=== PATIENT | female | born 2000 | race Caucasian/White ===

== ENCOUNTER → 2020-09-23 | Outpatient (CLI) | payer OTHER ==
--- NOTE | 2020-09-23 16:41 | CARD ---
MR#: [id number] Date of Study: 09/23/2020 Ordering Physician: MARISSA MUNOZ, Referring Physician: MARISSA MUNOZ, Tech: Melita Hartley, [facility] APPROVED REPORT EXAM: Two-dimensional and M-mode echocardiogram with Doppler and color Doppler. Other Information Quality : GoodHR: 81bpm INDICATION Syncope 2D DIMENSIONS RVDd2.2 (2.9-3.5cm)Left Atrium(2D)2.3 (1.6-4.0cm) IVSd0.9 (0.7-1.1cm)Aortic Root(2D)2.4 (2.0-3.7cm) LVDd4.5 (3.9-5.9cm)LVOT Diameter2.0 (1.8-2.4cm) PWd0.7 (0.7-1.1cm)LVDs3.0 (2.5-4.0cm) FS (%) 34.1 %SV59.6 ml Aortic Valve AoV Peak Brock.97.8cm/sAoV VTI16.2cm AO Peak GR.3.8mmHgLVOT Peak Brock.74.3cm/s LVOT VTI 14.28cmAO Mean GR.2mmHg RICHA (VMAX)1.77rv3IRY (VTI)2.71cm2 Mitral Valve MV E Nuhctxdo83.5cm/sMV DECEL HUND370ab MV A Cegsylve19.2cm/sMV KWO03gv E/A Ratio1.7MVA (PHT)2.47cm2 TDI E/Lateral E'3.8E/Medial E'5.2 Pulmonary Valve PV Peak Zgfgpyfb42.9cm/sPV Peak Grad.3mmHg Tricuspid Valve TR P. Irvydgzv626bd/sRAP [id number] TR Peak Gr.11zySkWTEF67ztOe Pulmonary Vein S1 Fjjnvphk53.7cm/sD2 Sftxjlnf03.0cm/s PVa [id number] LEFT VENTRICLE The left ventricle is normal size. There is normal left ventricular wall thickness. The left ventricu lar systolic function is normal and the ejection fraction is within normal range. The Ejection Fracti on is 50-55%. There is normal LV segmental wall motion. The left ventricular diastolic function and f illing is normal for age. RIGHT VENTRICLE The right ventricle is normal size. There is normal right ventricular wall thickness. The right ventr icular systolic function is normal. ATRIA The left atrium size is normal. The right atrium size is normal. The interatrial septum is intact wit h no evidence for an atrial septal defect or patent foramen ovale as noted on 2-D or Doppler imaging. AORTIC VALVE The aortic valve is normal in structure and function. Doppler and Color Flow revealed no significant aortic regurgitation. There is no significant aortic valvular stenosis. Calculated aortic valve area is 2.34 cm2 with maximum pressure gradient of 5 mmHg and mean pressure gradient of 3 mmHg. MITRAL VALVE The mitral valve is normal in structure and function. There is no evidence of mitral valve prolapse. There is no mitral valve stenosis. Doppler and Color-flow revealed trace mitral regurgitation. TRICUSPID VALVE The tricuspid valve is normal in structure and function. Doppler and Color Flow revealed trace tricus pid regurgitation with an estimated PAP of 27 mmHg. There is no tricuspid valve stenosis. PULMONIC VALVE The pulmonic valve is not well visualized. Doppler and Color Flow revealed trace pulmonic valvular re gurgitation. GREAT VESSELS The aortic root is normal in size. The IVC is normal in size and collapses >50% with inspiration. PERICARDIAL EFFUSION There is no evidence of significant pericardial effusion. Critical Notification Critical Value: No <Conclusion> The left ventricle is normal size. The left ventricular systolic function is normal and the ejection fraction is within normal range. The Ejection Fraction is 50-55%. Doppler and Color Flow revealed no significant aortic regurgitation. There is no significant aortic valvular stenosis. Doppler and Color-flow revealed trace mitral regurgitation. Doppler and Color Flow revealed trace tricuspid regurgitation with an estimated PAP of 27 mmHg. Signed by : Haim Leigh MD Electronically Approved : 09/23/2020 16:41:10
== END ==
LOC: ECHO 13:43
PROVIDERS: ATTEND Internal Medicine Cardiovascular Disease
DX: R55 Syncope and collapse (principal)
CPT/HCPCS: 93306

== ENCOUNTER → 2020-10-23 | Day surgery (SDC) | payer OTHER ==
[~2020-10-23] VITALS: Ht 160 cm; Wt 59.0 kg
[~2020-10-23] MED LIST: ATEN25TA PO; IV RINGERS,LACTATED 1000ML 1,000 ML IV SCH; NORE1TAB22 PO; OMEP40CA7 PO; PRAM2.252 PO; PROPOFOL 10 MG/ML (20ML) VIAL. IV ONE; SERT50TA PO
[2020-10-23 07:03] VITALS: BP 117/70
[2020-10-23 08:15] VITALS: BP 114/70
== END | disposition home or self-care (01) ==
LOC: SURG 06:32
PROVIDERS: ATTEND Internal Medicine Gastroenterology
DX: R10.11 Right upper quadrant pain (principal); F32.9 Major depressive disorder, single episode, unspecified; T18.2XXA Foreign body in stomach, initial encounter; Z90.49 Acquired absence of other specified parts of digestive tract; Z98.890 Other specified postprocedural states; Z91.040 Latex allergy status; Z72.89 Other problems related to lifestyle; Z79.899 Other long term (current) drug therapy; X58.XXXA Exposure to other specified factors, initial encounter; Y93.89 Activity, other specified; Y92.89 Other specified places as the place of occurrence of the external cause; Y99.8 Other external cause status
CPT/HCPCS: 43235; 81025; J2704